=== PATIENT | female | born 1950 | race Caucasian/White ===

== ENCOUNTER 2019-01-13 12:24 | Outpatient (CLI) | payer MEDICARE, OTHER | END 2019-01-13 23:59 | disposition home or self-care (01) | LOC: CFH 12:24 | PROVIDERS: ATTEND Physician Assistant Surgical | DX: S52.571A Other intraarticular fracture of lower end of right radius, initial encounter for closed fracture (principal); S52.611A Displaced fracture of right ulna styloid process, initial encounter for closed fracture; M79.89 Other specified soft tissue disorders; M25.731 Osteophyte, right wrist; X58.XXXA Exposure to other specified factors, initial encounter; Y93.89 Activity, other specified; Y92.89 Other specified places as the place of occurrence of the external cause; Y99.8 Other external cause status ==